=== PATIENT | female | born 1980 | race Caucasian/White ===

== ENCOUNTER 2020-01-20 19:01 | Inpatient (IN) | payer BC ==
[2020-01-20] MEDS ORDERED: LIDOCAINE 0.5% (PF) 5 MG/ML (50 ML SDV) SQ PRN (19:29)
[2020-01-20] MEDS ORDERED: TERBUTALINE 1 MG/ML VIAL SQ PRN (19:29)
[2020-01-20] MEDS ORDERED: OXYTOCIN 10 UNIT/ML 1 ML VIAL IM PRN (19:29)
[2020-01-20] MEDS ORDERED: METHYLERGONOVINE 0.2 MG/ML 1 ML AMP IM PRN (19:29)
[2020-01-20] MEDS ORDERED: CARBOPROST TROMETHAMINE 250 MCG/ML 1 ML AMP IM PRN (19:29)
--- NOTE | 2020-01-20 19:34 | P.HPOB ---
History of Present Illness H&P Date: 01/20/20 Chief Complaint: Audible deceleration in the office This is a 39 year old EDC [birth year]39 at 39 weeks gestation. Patient presented for her visit in the office today, it which time an audible deceleration was noted at 105. This was followed by reactive NST. Patient has been having mild uterine and since that time. She denies vaginal bleeding or fluid leakage. Fetus is been active throughout the . Past medical history is significant for history of depression. Past obstetric history blood type is A+, rubella status immune. VDRL testing, urine culture, hepatitis B surface antigen, HIV testing, gonorrhea and chlamydia cultures were group B strep cultures all negative. One-hour Glucola 99. Past surgical history is negative. Family history her graft obstetric history significant for 2 spontaneous miscarriages, neither requiring D&C. Social history patient is , she is never been a smoker, ALLERGIES none known. Current medications vitamins daily. On examination patient is a blood pressure 134/76, pulse 72, patient is afebrile. General physical exam is within normal limits. Cervix is 4 cm dilated, 90% effaced, -2 station, vertex presentation. Artificial amniorrhexis reveals clear fluid. heart rate at this time is consistent with reactive NST with a baseline of 130s. She is having spontaneous contractions approximately every 2-3 minutes apart of mild intensity. Impression:39 week intrauterine with audible deceleration in the office, AMA. All signs currently reassuring. Plan: Close maternal and surveillance. Patient presents with a plan which we have reviewed and I will attempt to honor. Analgesic options reviewed with the patient. Anticipate . Review of Systems Constitutional: Reports as per HPI Past Medical History Past Psychological History: Depression Smoking Status: Never smoker Medications and Allergies Home Medications and Allergies Comment(s): vitamin daily Exam see dictation please Assessment and Plan Assessment: 39 week , AMA, audible decleration in the office, heart tones reassuring at this time. Plan: Close maternal and surveillance. Anticipate normal spontaneous vaginal delivery. Time with Patient: Less than 30
[2020-01-20] MEDS: LACTATED RINGERS 1,000 ML IV SCH (20:13)
[2020-01-20 20:17] LABS: Basophils % (A) 0 %; Eosinophils # (A) 0.1 k/uL (0-0.7); Eosinophils % (A) 1 %; HCT 37.7 % (34.0-46.0); HGB 12.7 gm/dL (11.4-16.0); Lymphocytes # (A) 1.8 k/uL (1.0-4.8); Lymphocytes % (A) 19 %; MCH 31.6 pg (25.0-35.0); MCHC 33.6 g/dL (31.0-37.0); MCV 94.1 fL (80.0-100.0); Mean Platelet Volume 9.5; Monocytes # (A) 0.5 k/uL (0-1.0); Monocytes % (A) 5 %; Neutrophils # (A) 7.2 k/uL (1.3-7.7); Neutrophils % (A) 74 %; Platelet Count 209 k/uL (150-450); RDW 13.5 % (11.5-15.5); WBC 9.7 k/uL (3.8-10.6)
[2020-01-21] MEDS: OXYTOCIN 30 UNITS/500 ML NS 30 UNIT in SALINE 1 500ML.BAG IV SCH (02:52)
[2020-01-21] MEDS ORDERED: PENICILLIN G POTASSIUM 5,000,000 UNIT in DEXTROSE 5% IN WATER 100 ML IVPB STA ×2 (07:06)
[2020-01-21] MEDS ORDERED: BUTORPHANOL 1 MG/ML 1 ML VIAL IV PRN (07:07)
[2020-01-21] MEDS: LACTATED RINGERS 1,000 ML IV SCH (07:46)
[2020-01-21] MEDS ORDERED: fentaNYL (PF) 50 MCG/ML 5 ML AMP ONE (08:16)
[2020-01-21] MEDS ORDERED: ROPIVACAINE 5MG/ML 20ML VIAL ONE (08:16)
[2020-01-21] MEDS ORDERED: SODIUM CHLORIDE 0.9% 100 ML BAG ONE (08:16)
[2020-01-21] MEDS ORDERED: LANOLIN CREAM 5 GM TUBE TOPICAL PRN (13:07)
[2020-01-21] MEDS ORDERED: HYDROCORTISONE 2.5% RECTAL CREAM 30 GM TUBE RECTAL PRN (13:07)
[2020-01-21] MEDS ORDERED: diphenhydrAMINE 50 MG CAP PO PRN (13:07)
[2020-01-21] MEDS ORDERED: SIMETHICONE 80 MG CHEWABLE PO PRN (13:07)
[2020-01-21] MEDS ORDERED: diphenhydrAMINE 50 MG/ML 1 ML VIAL IVP PRN ×2 (13:07)
[2020-01-21] MEDS ORDERED: ACETAMINOPHEN TAB 325 MG TAB PO PRN (13:07)
[2020-01-21] MEDS ORDERED: IBUPROFEN 600 MG TAB PO PRN (13:07)
[2020-01-21] MEDS ORDERED: diphenhydrAMINE 25 MG CAP PO PRN (13:07)
[2020-01-21] MEDS ORDERED: ZOLPIDEM 5 MG TAB PO PRN (13:07)
[2020-01-21] MEDS ORDERED: BENZOCAINE/MENTHOL SPRAY 1 GM/SPRAY AEROSOL TOPICAL PRN (13:07)
--- NOTE | 2020-01-21 13:07 | P.PROBDLV ---
Vaginal Delivery Note - . Vaginal Delivery Note: This is a 39-year-old white female 3 para 0020 EDC 01/27/2020 at 39 weeks gestation who presented yesterday on the office with an audible deceleration. Cervix was 4 cm dilated 90% effaced, therefore decision was made to proceed with induction. When she was admitted she was having spontaneous uterine contractions every 4-5 minutes apart of mild intensity. Fetus is been active throughout the . Advanced maternal age, negative group B strep cultures, blood type A+, rubella status immune. Please see dictated history and physical for details. Artificial amniorrhexis revealed clear fluid. After sometime patient agreed to oxytocin augmentation and this was started. Epidural was placed per her request. Penicillin G was given 1 dose for a long ruptured membranes. Patient became completely dilated at 1246 hrs. and began the second stage of labor at that time. Perineal body was prepped and draped in usual sterile fashion. With excellent maternal expulsive efforts the 's head delivered occiput anterior and he restituted accordingly. There was a tight nuchal cord 1 that was reduced. The left or anterior shoulder was delivered from underneath the pubic symphysis at which time the oropharynx, nasopharynx, and external nares were bulb suctioned. Patient was officially delivered of a liveborn male at 1253 hrs. Umbilical cord was doubly clamped and ligated, he was handed to waiting nurses for evaluation where scores of 9 and 9 at one and 5 minutes respectively were given. Placenta delivered spontaneously, it was inspected and noted to be intact with trivascular cord at 1256 hrs. Perineal body was then re-drapes. Careful inspection of the cervix, vagina, perineum, periurethral, and perirectal areas reveals no lacerations and no defects. Total estimated blood loss 200 mL's. Fundus is firm and in the midline, symmetric and 18 week size upon completion of delivery. Patient and her family are allowed to begin the bonding experience. They are declining circumcision further son.
[2020-01-21] MEDS ORDERED: OXYTOCIN 20 UNITS/1000 ML NS 1,000 ML IV SCH (13:15)
[2020-01-22] MEDS: LACTATED RINGERS 1,000 ML IV SCH ×2 (04:24→04:25)
[2020-01-22] MEDS: SENNOSIDES-DOCUSATE SODIUM 1 EACH TAB PO SCH ×2 (04:25→08:21)
[2020-01-22] MEDS: OXYTOCIN 30 UNITS/500 ML NS 30 UNIT in SALINE 1 500ML.BAG IV SCH (04:25)
[2020-01-22] MEDS: PENICILLIN G POTASSIUM 2,500,000 UNIT in DEXTROSE 5% IN WATER 100 ML IVPB SCH ×2 (04:33)
--- NOTE | 2020-01-22 08:18 | P.DS ---
Providers Date of admission: 01/20/20 19:01 Expected date of discharge: 01/22/20 Attending physician: Jeannie Pan Primary care physician: Stated None Hospital Course: This is a 39-year-old white female 3 para 0020 EDC 01/27/2020 at 39 and one sevenths weeks' gestation. Patient presented with an audible deceleration in the office for induction. is remarkable for group B strep cultures negative, rubella status immune, blood type B positive. Please see dictated history and physical for details. Patient went on to deliver a liveborn male infant with scores of 9 and 9 at one and 5 minutes respectively. There was a nuchal cord 1 that was reduced. He weighed 7 lbs. 1 oz. With an estimated blood loss recorded of 200 mL's. A tight nuchal cord that was reduced. Please see dictated delivery note for details. This morning the patient is doing well. She is voiding, ambulating, passing flatus without difficulty. Vital signs are stable and she is afebrile. Fundus is firm and in the midline, symmetric and 18 week size. Breasts are not engorged. Breast-feeding is going well. Patient is judged to be in very good condition for discharge home. She will follow-up with me in the office in 6 weeks. I have reminded her no intercourse, tampons or douching. She will use [id number] Advil or Aleve, or Motrin as needed for pain. She will call with any fevers shakes or chills, foul smelling or copious lochia, with the passage of large blood clots, with any pain not alleviated by [id number] products, or indeed with any concerns. She is declining circumcision for her infant son. Assessment: Doing well post day #1. Patient Condition at Discharge: Good Plan - Discharge Summary Discharge Rx Participant: No New Discharge Prescriptions: No Action Pnv No.95/Ferrous Fum/Folic AC [ Multivitamin Tablet] 1 tab PO DAILY Aspirin 81 mg PO DAILY Discharge Medication List Aspirin 81 mg PO DAILY 01/20/20 [History] Pnv No.95/Ferrous Fum/Folic AC [ Multivitamin Tablet] 1 tab PO DAILY 01/20/20 [History] Follow up Appointment(s)/Referral(s): Jeannie Pan MD [STAFF PHYSICIAN] - 6 Weeks
[2020-01-22 08:53] VITALS: BP 125/76; PULSE 69; RESP 16; TEMP 97.7
== END 2020-01-22 13:50 | disposition home or self-care (01) | DRG 807 ==
LOC: 4FBP 19:01
PROVIDERS: ADMIT Obstetrics & Gynecology; ATTEND Obstetrics & Gynecology
PROC: 10E0XZZ Delivery of Products of Conception, External Approach (ICD-10-PCS; principal; 2020-01-21)
DX: O69.1XX0 Labor and delivery complicated by cord around neck, with compression, not applicable or unspecified (principal); Z37.0 Single live birth; F32.9 Major depressive disorder, single episode, unspecified; O76 Abnormality in fetal heart rate and rhythm complicating labor and delivery; O99.344 Other mental disorders complicating childbirth; Z3A.39 39 weeks gestation of pregnancy
CPT/HCPCS: 85025; 86850; 86900; 86901